=== PATIENT | male | born 1990 | race Caucasian/White ===

== ENCOUNTER 2021-03-18 00:47 | Emergency (ER) | payer BC, SELFPAY ==
[2021-03-18 00:50] VITALS: BP 140/77; PULSE 80; RESP 20; TEMP 36.6; O2SAT 100
--- NOTE | 2021-03-18 01:49 | ED.GENADULT ---
HPI - General Adult General Chief complaint: Skin/Abscess/Foreign Body Stated complaint: Rash on R side of face Time Seen by Provider: 03/18/21 01:21 History of Present Illness HPI narrative: Patient 30-year-old gentleman who presents the emergency department with chief complaint of rash on the right side of his face. Patient states he seen with his primary care physician has been seen in the emergency department in [facility]. Patient was treated with antibiotics and also your drops for potential otitis externa. Patient noticed that he has blisters and noticed that it itches and rincon. Patient's significant other reports that is concerned for zoster. Related Data Allergies Allergy/AdvReac Type Severity Reaction Status Date / Time No Known Allergies Allergy Verified 02/15/15 14:20 Review of Systems Review of Systems: A 10 system review of systems was completed on the patient and is negative except for what is stated in the HPI. Nursing and ancillary documentation was reviewed. Exam Narrative: GENERAL: Well-appearing, well-nourished, and in no acute distress. HEAD: Normocephalic, atraumatic. EYES: PERRLA and EOMI. ENT: Nares clear, no rhinorrhea or epistaxis. Mucous membranes moist. NECK: Supple. CHEST: Clear to auscultation. No respiratory distress. HEART: Regular rate and rhythm. No murmur heard. Normal peripheral pulses. ABDOMEN: Soft, nontender, nondistended, normal active bowel sounds. EXTREMITIES: Normal range of motion. No edema. SKIN: Warm, dry, zoster form rash present on the right side of the face. NEURO: No focal deficits. Alert and oriented x3. PSYCH: Normal mood and affect. Course Vital Signs Vital signs: Vital Signs Temperature 36.6 C 03/18/21 00:50 Pulse Rate 80 03/18/21 00:50 Respiratory Rate 20 03/18/21 00:50 Blood Pressure 140/77 03/18/21 00:50 Pulse Oximetry 100 03/18/21 00:50 Temperature 36.6 C 03/18/21 00:50 Pulse Rate 80 03/18/21 00:50 Respiratory Rate 20 03/18/21 00:50 Blood Pressure 140/77 03/18/21 00:50 Pulse Oximetry 100 03/18/21 00:50 Medical Decision Making Vital Signs Vital Signs: Vital Signs Temperature 36.6 C 10/10/21 00:50 Pulse Rate 80 03/18/21 00:50 Respiratory Rate 20 03/18/21 00:50 Blood Pressure 140/77 03/18/21 00:50 Pulse Oximetry 100 03/18/21 00:50 Temperature 36.6 C 03/18/21 00:50 Pulse Rate 80 03/18/21 00:50 Respiratory Rate 20 03/18/21 00:50 Blood Pressure 140/77 03/18/21 00:50 Pulse Oximetry 100 03/18/21 00:50 Discharge Plan Discharge Clinical Impression: Herpes zoster Qualifiers: Herpes zoster complications: without complications Qualified Code(s): B02.9 - Zoster without complications Patient Disposition: Home, Self-Care Condition: Stable Instructions: Antibiotic Form, Shingles (ED) Prescriptions: New famciclovir 500 mg tablet 500 mg PO Q8H 7 Days Qty: 21 RF: 0 prednisone 20 mg tablet 60 mg PO DAILY 5 Days Qty: 15 RF: 0 hydrocodone-acetaminophen 5-325 mg tablet 1 tablet PO Q6H PRN (Reason: pain) 3 Days Qty: 12 RF: 0 Follow-up/Referrals: Anna,DO Adalid [Primary Care Provider] - Time of Disposition: 01:53
[2021-03-18] MEDS: predniSONE 20 MG TABLET 60 MG PO (02:04)
[2021-03-18] MEDS: HYDROcodone/acetaminophen (*CRX) 5-325 MG TABLET 1 TAB PO (02:05)
== END 2021-03-18 02:14 | disposition home or self-care (01) ==
PROVIDERS: Emergency Provider Emergency Medicine; PCP Student in an Organized Health Care Education/Training Program
DX: B02.9 Zoster without complications (principal)
CPT/HCPCS: 99283; A9270; J7512